=== PATIENT | male | born 1965 | race African-American/Black ===

== ENCOUNTER 2020-05-10 00:53 | Emergency (ER) | payer MEDICAID ==
[~2020-05-10] VITALS: Ht 177.8 cm; Wt 127.0 kg
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
--- NOTE | 2020-05-10 01:26 | NUR ---
PATIENT PLACED IN ROOM 6. PATIENT ASKED TO TRANSFER TO [facility]. PATIENT ON CELL PHONE STATES "I'LL GO TO THE BED WHEN I GET TO IT." PATIENT OBSERVED TEXT MESSAGING. NO ACUTE DISTRESS NOTED.
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
--- NOTE | 2020-05-10 01:35 | NUR ---
ER Dr. OVALLES at bedside examining patient.PATIENT STATES "BRO, CAN I GET A MORPHINE SHOT? I AM IN SO MUCH PAIN." Patient reports he takes 30 mg of oxycodone four times a day for ankle pain and reports he only took 1 pill this morning.
[2020-05-10] MEDS ORDERED: OXYCODONE/ACETAMINOPHEN *10*mg/325 mg TABLET PO ONE (01:45)
[2020-05-10] MEDS ORDERED: KETOROLAC TROMETHAMINE 60 MG/2 ML VIAL IM ONE (01:45)
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
--- NOTE | 2020-05-10 03:10 | NUR ---
Patient given written and verbal discharge instructions and verbalizes understanding. ER MD DR. OVALLES discussed with patient the results and treatment provided. Patient in stable condition. ID arm band removed. Patient educated on pain management and to follow up with PMD. Pain Scale 0/10. Opportunity for questions provided and answered. Medication side effect fact sheet provided.
== END 2020-05-10 03:10 | disposition home or self-care (01) ==
LOC: SED 00:53
DX: S93.402A Sprain of unspecified ligament of left ankle, initial encounter (principal); R45.1 Restlessness and agitation; J45.909 Unspecified asthma, uncomplicated; I10 Essential (primary) hypertension; E11.9 Type 2 diabetes mellitus without complications; Y04.0XXA Assault by unarmed brawl or fight, initial encounter; Y93.89 Activity, other specified; Y92.89 Other specified places as the place of occurrence of the external cause; Y99.8 Other external cause status
CPT/HCPCS: 73610; 96372; 99283; J1885